=== PATIENT | male | born 2005 | race Caucasian/White ===

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

== ENCOUNTER 2025-01-31 08:45 | Emergency (ER) | payer OTHER ==
[2025-01-31 10:06] VITALS: BP 137/89; PULSE 100
== END 2025-01-31 09:50 | disposition home or self-care (01) ==
LOC: VM.ED 08:45
DX: Z02.83 Encounter for blood-alcohol and blood-drug test (principal)
CPT/HCPCS: 36415; 80307; 99282